=== PATIENT | male | born 1985 | race Caucasian/White ===

== ENCOUNTER 2023-11-28 08:30 | Outpatient (RCR) | payer MEDICAID, SELFPAY ==
--- NOTE | 2023-11-15 10:28 | HP.PTEVAL ---
Patient's Visit Information Visit Information Visit Information: SONU RYDER is a 37 year old M referred to Physical Therapy by Dr. Sandra Pro MD with a diagnosis of Post-surgical chiari malformation decompression. Date of Evaluation: 11/14/23 Physical Therapist: Geronimo Reynaga DPT Visit Plan Frequency: 1x/Week Duration: 4 Weeks Plan: 1) Decrease neck/shoulder muscular tightness: scalenes, SCM, suboccipitals, UT, levator scap, pecs 2) Stretching to neck musculature, lats, pecs 3) Core strengthening with relaxation techniques: decrease neck/shoulder tightening and compensation with core contraction/gym ex Subjective Subjective: Pt reports having decompression sx 3 months ago to help fix chiari malformation. 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 Pt has greatest difficulty with sleeping, gets about an hour of sleep per night. Very little numbness and tingling, prolonged periods of sitting sometimes aggravates. Surgeon did x-rays and MRI and anatomy looks normal. Some blurred vision after waking up, no dizziness and surgeon aware of this. Biggest goal is comfort, spasms in shoulder and pain worse in evening. Having headaches 24/7, dull. Constant pain gets to 5 or 6/10, worse with holding breath or tightening neck. Hot bath or heat to helps with pain. Pain Neck: Pain Intensity (Out of 10): 0 Pain Intensity Range: 0 and 6 Objective Objective: ROM: cervical WNL, shoulder WNL, some stiffness with thoracic ext MMT: deep cervical flexors 30s hold no pain PALPATION: slightly elevated R rib, TTP lilly SCM, scalenes, pecs, UT, suboccipitals, good scar mobility Pt came in with headache and describes pressure feeling when tightening neck musculature. Responded well to suboccipital release and STM to scalenes, UT, and SCM. Pt has good potential to return to working out and ADLs with less pain/headaches once muscular tightness is reduced. Balance/Special Test Scores Oswestry Neck Score: 14 Goals Goal 1:: Pt will have min to no TTP in neck/shoulder musculature Goal Time Frame: 2-4 Weeks Goal 2:: Pt will be able to sleep 5-6 hours with <2/10 pain Goal Time Frame: 2-4 Weeks Goal 3:: Pt will report <2 BADILLO a week Goal Time Frame: 2-4 Weeks Goal 4:: Pt will be able to return to working out 3+ times per week with <2/10 pain Goal Time Frame: 2-4 Weeks Goal 5:: Pt will score <5 on VIDHI (neck) to demonstrate improved tolerance to ADLs Goal Time Frame: 2-4 Weeks Rehabilitation Potential Physical Therapy Diagnosis: Pt presents to PT with neck pain and headaches secondary to muscular guarding, tightness following decompression surgery. Pt would benefit from PT services to address decreased tissue extensibility, headaches, and relaxation techniques of neck/shoulder. Rehabilitation Potential: Excellent Anticipated Interventions Patient/Client Instruction: Educate patient on: Risk Factors For the Purpose of:: To decrease pain, To improve muscle performance and motor function, To improve ability to perform ADL's, To increase tolerance to activity/condition/position, To improve performance and independence with ADL's, To improve ability of physical actions for home/community/work/leisure, To improve health of tissue, To decrease soft tissue restriction, To increase flexibility/ROM, To foster healthy habits, To improve self management, To improve ability to perform tasks related to life management and To improve tolerance to ADL's Therapeutic Exercise to Include: Strength training, Endurance training, Body mechanics, Postural training, Flexibilty training and Relaxation training For the Purpose of:: To decrease pain, To increase ROM, To improve ability to perform ADL's, To increase tolerance to activity/condition/position, To improve performance and independence with ADL's, To improve ability of physical actions for home/community/work/leisure, To improve gait and locomotor functions, To decrease soft tissue restriction, To improve ability to perform tasks related to life management and To improve tolerance to ADL's Manual Therapy Techniques to Include: Mobilization, Passive ROM, Functional dry needling and Soft tissue mobilization For the Purpose of:: To decrease pain, To improve health of tissue, To decrease soft tissue restriction, To increase flexibility/ROM, To improve health and function and To improve ability to perform tasks related to life management TENS: Yes IF ES: Yes Cryotherapy (ice pack, ice massage): Yes Thermo therapy (hot pack): Yes Text: Thank you for the opportunity to evaluate your patient. For Medicare and Medicare HMO plans, please review the plan of care and approve it. It will need to be FAXED BACK to us at [phone] for Medicare purposes. For Medicare only, by signing this I certify the plan of care. Please let me know if there are questions or concerns regarding this plan of care. Physician Signature: Date:
--- NOTE | 2024-01-26 12:45 | HP.PT.NRP ---
Patient Information Patient Information: BRITNI ASCENCIO was seen in my office for initial evaluation on 11/14/23. The following Plan of Care was established for this patient: POC Established Initial Frequency: 1x/Week Initial Duration: 4 Weeks Anticipated Interventions Patient/Client Instruction: Educate patient on: Risk Factors For the Purpose of:: To decrease pain, To improve muscle performance and motor function, To improve ability to perform ADL's, To increase tolerance to activity/condition/position, To improve performance and independence with ADL's, To improve ability of physical actions for home/community/work/leisure, To improve health of tissue, To decrease soft tissue restriction, To increase flexibility/ROM, To foster healthy habits, To improve self management, To improve ability to perform tasks related to life management and To improve tolerance to ADL's Therapeutic Exercise to Include: Strength training, Endurance training, Body mechanics, Postural training, Flexibilty training and Relaxation training For the Purpose of:: To decrease pain, To increase ROM, To improve ability to perform ADL's, To increase tolerance to activity/condition/position, To improve performance and independence with ADL's, To improve ability of physical actions for home/community/work/leisure, To improve gait and locomotor functions, To decrease soft tissue restriction, To improve ability to perform tasks related to life management and To improve tolerance to ADL's Manual Therapy Techniques to Include: Mobilization, Passive ROM, Functional dry needling and Soft tissue mobilization For the Purpose of:: To decrease pain, To improve health of tissue, To decrease soft tissue restriction, To increase flexibility/ROM, To improve health and function and To improve ability to perform tasks related to life management TENS: Yes IF ES: Yes Cryotherapy (ice pack, ice massage): Yes Thermo therapy (hot pack): Yes Last Seen Last Seen: This patient was last seen in our office 11/28/23. Pertinent comments regarding their Physical therapy will appear below: Pt. was seen in PT for his chiari malformation. Pt. was seen for 3 visits, but has not been seen in ~2 months. Pt. will be DC from PT at this point in time. At this point I will be discontinuing this patient from physical therapy. I would be happy to see this patient again in the future if found appropriate by the physician. Thank you! Geronimo Laceyos, DPT Balance/Gait/Functional tests Balance/Special Test Scores Oswestry Neck Score: 14
== END 2023-11-28 19:00 | disposition home or self-care (01) ==
LOC: PT 08:30
PROVIDERS: PCP Nurse Practitioner Family; Referring Provider Neurological Surgery; Visit Provider Neurological Surgery
DX: G44.86 Cervicogenic headache (principal)
CPT/HCPCS: 97110; 97140; 97161